=== PATIENT | female | born 1975 ===

== ENCOUNTER → 2021-01-09 09:39 | Outpatient (CLI) | payer SELFPAY ==
--- NOTE | ~2021-01-09 | MM_ITS ---
EXAMINATION: MM diagnostic jim LT w quiana HISTORY: Six-month follow-up for probably benign left breast calcifications TECHNIQUE: Craniocaudal, mediolateral, and mediolateral oblique 3-D tomosynthesis images of the left breast were performed and synthetic 2-D images were generated. Magnification views are also obtained. CAD analysis was submitted and interpreted. COMPARISON: No prior mammogram is currently available for comparison. BREAST PARENCHYMAL COMPOSITION: The breasts are heterogeneously dense, which may obscure small masses . FINDINGS: There are grouped calcifications in the posterior third of the upper outer quadrant of the breast at the 1:00 location 10 cm from the nipple. These appear to be predominantly round in morpholo gy. No associated mass is identified. IMPRESSION: 1. Probably benign left breast calcifications however comparison with prior mammograms is necessary t o assess for interval change. In addition, patient is due for screening mammography of the right [address]. BI-RADS Category 0: Incomplete: Needs comparison with prior mammograms. Reviewed, dictated and finalized at location A. FINANCIAL COUNSELOR IMPRESSION: 1. Probably benign left breast calcifications however comparison with prior [facility] mograms is necessary to assess for interval change. In addition, patient is due for screening mammography of the right breast. BI-RADS Category 0: Incomplete: Needs comparison with prior mammograms.
== END ==
PROVIDERS: PCP Internal Medicine; Visit Provider Obstetrics & Gynecology
DX: R92.8 Other abnormal and inconclusive findings on diagnostic imaging of breast (principal)
CPT/HCPCS: 77061; 77065; G0279

== ENCOUNTER 2022-11-28 14:27 | Outpatient (CLI) | payer SELFPAY ==
--- NOTE | ~2022-11-28 | MM_ITS ---
EXAMINATION: MM screening jim BI w quiana HISTORY: Screening mammogram TECHNIQUE: Craniocaudal and mediolateral oblique 3-D tomosynthesis images were obtained and synthetic 2-D images were generated. CAD analysis was submitted and interpreted. COMPARISON: 01/09/2021, 04/06/2020, 10/12/2019 BREAST PARENCHYMAL COMPOSITION: The breasts are heterogeneously dense, which may obscure small masses . FINDINGS: RIGHT BREAST: There is a possible mass in the middle/posterior third of the lower-outer breast best a ppreciated 10 cm from the nipple on the mediolateral oblique view. LEFT BREAST: No suspicious mass, calcification, or architectural distortion are identified to suggest malignancy. There has been no suspicious interval change. IMPRESSION: 1. Possible right breast mass. 2. Additional mammographic views and possible breast ultrasound are recommended. BI-RADS Category 0: Incomplete: Needs additional imaging evaluation. Reviewed, dictated and finalized at location A. IMPRESSION: 1. Possible right breast mass. 2. Additional mammographic views and possible breast ultrasound are recommended . BI-RADS Category 0: Incomplete: Needs additional imaging evaluation.
== END 2022-11-28 14:28 | disposition home or self-care (01) ==
LOC: CHSIMG 14:32
PROVIDERS: PCP Internal Medicine; Visit Provider Obstetrics & Gynecology
DX: Z12.31 Encounter for screening mammogram for malignant neoplasm of breast (principal); R92.8 Other abnormal and inconclusive findings on diagnostic imaging of breast
CPT/HCPCS: 77063; 77067